=== PATIENT | female | born 1955 | race Caucasian/White ===

== ENCOUNTER → 2023-02-05 07:15 | Outpatient (CLI) | payer OTHER ==
[~2023-02-05 07:15] MED LIST: CHILDREN'S ASPI81 MG PO; HORIZANT600 MG PO; HYDROCHLOROTHIA25 MG PO; KEPPRA XR500 MG PO; SYNTHROID137 MCG PO; TEGRETOL XR400 MG PO; TENORMIN50 M1 PO; XANAX XR2 MG PO
== END | disposition home or self-care (01) ==
LOC: LAB 07:15
PROVIDERS: ATTEND Specialist
DX: Z11.52 Encounter for screening for COVID-19 (principal)

== ENCOUNTER 2023-02-07 04:40 | Inpatient (IN) | payer OTHER ==
[~2023-02-07] VITALS: Ht 167.6 cm; Wt 80.3 kg
[2023-02-08] MEDS ORDERED: DICLOFENAC POTA50 MG (08:03)
[2023-02-08] MEDS ORDERED: OMEPRAZOLE20 MG (08:03)
[2023-02-08] MEDS ORDERED: FAMOTIDINE40 MG (08:03)
[2023-02-08] MEDS ORDERED: VOLTAREN ARTHRI20 GM (08:03)
[2023-02-08] MEDS ORDERED: URINARY PAIN RE95 MG (08:03)
[2023-02-08] MEDS ORDERED: SIMVASTATIN40 MG (08:03)
[2023-02-08] MEDS ORDERED: DICYCLOMINE HCL20 MG (08:04)
[2023-02-08] MEDS ORDERED: MAXIMUM D3325 MCG (08:04)
[2023-02-08] MEDS ORDERED: PENTOXIFYLLINE400 MG (08:04)
== END 2023-02-12 16:27 | disposition home or self-care (01) | DRG 416 ==
LOC: CIR.AMB 04:40 → SURG 13:40 → O/R 13:40 → SURG 13:53
PROVIDERS: ADMIT Specialist; ATTEND Specialist
PROC: 0FJ44ZZ Inspection of Gallbladder, Percutaneous Endoscopic Approach (ICD-10-PCS; 2023-02-07)
PROC: 0FT40ZZ Resection of Gallbladder, Open Approach (ICD-10-PCS; principal; 2023-02-07 08:45)
DX: K80.10 Calculus of gallbladder with chronic cholecystitis without obstruction (principal); N73.6 Female pelvic peritoneal adhesions (postinfective); N99.4 Postprocedural pelvic peritoneal adhesions; I10 Essential (primary) hypertension; E03.9 Hypothyroidism, unspecified; Z20.822 Contact with and (suspected) exposure to COVID-19; Z53.31 Laparoscopic surgical procedure converted to open procedure